=== PATIENT | female | born 1965 | race Asian ===

== ENCOUNTER 2018-06-01 18:00 | Emergency (ER) | payer SELFPAY ==
[~2018-06-01] VITALS: Ht 162.6 cm; Wt 98.7 kg
[2018-06-01 18:09] VITALS: BP 133/78
[2018-06-01] MEDS ORDERED: KETOROLAC 30 MG/1 ML IM ONE (19:00)
[2018-06-01] MEDS ORDERED: METHOCARBAMOL 750 MG TABLET PO ONE (19:00)
[2018-06-01] MEDS ORDERED: METHOCARBAMOL 750 MG TABLET ONE (19:06)
[2018-06-01] MEDS ORDERED: KETOROLAC 30 MG/1 ML ONE (19:06)
== END 2018-06-01 20:10 | disposition home or self-care (01) ==
LOC: ED 19:45
DX: M62.838 Other muscle spasm (principal); Z87.891 Personal history of nicotine dependence
CPT/HCPCS: 72050; 73030; 96372; 99284; J1885